=== PATIENT | female | born 1960 | race Caucasian/White ===

== ENCOUNTER 2016-10-28 18:15 | Inpatient (IN) | payer MEDICAID ==
[~2016-10-28] VITALS: Ht 162.6 cm; Wt 69.4 kg
[2016-10-28 19:59] LABS: PLATELET COUNT 153 x10^3mcL (130-400); RED CELL DISTRIBUTION WIDTH 12.7 % (11.5-14.5)
[2016-10-28 20:01] LABS: UA SPECIFIC GRAVITY 1.015 (1.005-1.035); microscopic required? YES; urine erythrocyte 1+ (NEGATIVE)
[2016-10-28 20:02] LABS: CALCIUM 8.5 mg/dL (8.5-10.1); CARBON DIOXIDE 20.3 mmol/L (21-32); CHLORIDE SERUM 104 mmol/L (98-107); GFR1 > 60 mL/min; GLUCOSE SERUM 163 mg/dL (74-106); POTASSIUM SERUM 3.3 mmol/L (3.5-5.1); SODIUM SERUM 138 mmol/L (136-145)
[2016-10-28 20:05] LABS: BASOPHIL % 0 % (0-2)
[2016-10-28 20:13] LABS: ALKALINE PHOSPHATASE 225 U/L (46-116); ALT/SGPT 71 U/L (14-59); AST/SGOT 23 U/L (15-37); BILIRUBIN TOTAL 1.41 mg/dL (0.20-1.00); TOTAL PROTEIN, SERUM 7.4 g/dL (6.4-8.2)
[2016-10-28 20:17] LABS: CK-MB < 0.5 ng/mL (0-3.6); CREATINE KINASE 74 U/L (26-192)
[2016-10-28 20:30] LABS: C REACTIVE PROTEIN 38.5 mg/dL (<=0.9)
[2016-10-28 20:32] LABS: T3 TOTAL 0.66 ng/mL
[2016-10-28 20:53] LABS: FREE T4 1.45 ng/dL (0.76-1.46); FREE THYROXINE INDEX 3.4 ug/dL (1.4-4.5); T4(THYROXINE) 9.7 ug/dL (4.7-13.3)
[2016-10-28] MEDS ORDERED: CLARITIN10 MG PO (21:33)
[2016-10-28] MEDS ORDERED: PHENAZOPYRIDIN200 M3 PO (21:33)
[2016-10-28] MEDS ORDERED: MAC100 PO (21:34)
[2016-10-28] MEDS ORDERED: IBUPROFEN400 MG PO (21:34)
[2016-10-28 22:05] LABS: CHOLESTEROL/HDL RATIO 3.7; MAGNESIUM 1.7 mg/dL (1.8-2.4); PHOSPHOROUS 2.4 mg/dL (2.5-4.9)
[2016-10-28 22:50] VITALS: BP 85/52
[2016-10-28 22:52] VITALS: BP 95/62
[2016-10-28 23:46] VITALS: BP 87/51
[2016-10-28 23:57] LABS: ERYTHROCYTE SED RATE 85 mm/hr (0-30)
[2016-10-29] VITALS (11 sets, daily range): BP systolic 83–112; BP diastolic 53–71
[2016-10-29 06:40] LABS: BASOPHIL % 0.3 % (0-2); RED CELL DISTRIBUTION WIDTH 12.9 % (11.5-14.5)
[2016-10-29 06:56] LABS: PLATELET COUNT 110 x10^3mcL (130-400)
[2016-10-29 07:03] LABS: CALCIUM 7.5 mg/dL (8.5-10.1); CARBON DIOXIDE 23.1 mmol/L (21-32); CHLORIDE SERUM 112 mmol/L (98-107); CREATININE SERUM 0.9 mg/dL (0.6-1.0); GFR1 > 60 mL/min; GLUCOSE SERUM 111 mg/dL (74-106); MAGNESIUM 2.6 mg/dL (1.8-2.4); PHOSPHOROUS 3.1 mg/dL (2.5-4.9); POTASSIUM SERUM 3.6 mmol/L (3.5-5.1); SODIUM SERUM 144 mmol/L (136-145)
[2016-10-30 06:24] VITALS: BP 116/64
[2016-10-30 06:36] LABS: BASOPHIL % 0.2 % (0-2); PLATELET COUNT 147 x10^3mcL (130-400); RED CELL DISTRIBUTION WIDTH 12.8 % (11.5-14.5)
[2016-10-30 06:42] LABS: CALCIUM 7.9 mg/dL (8.5-10.1); CARBON DIOXIDE 22.4 mmol/L (21-32); CHLORIDE SERUM 108 mmol/L (98-107); CREATININE SERUM 0.8 mg/dL (0.6-1.0); GFR1 > 60 mL/min; GLUCOSE SERUM 135 mg/dL (74-106); POTASSIUM SERUM 3.7 mmol/L (3.5-5.1); SODIUM SERUM 138 mmol/L (136-145)
[2016-10-30 09:11] VITALS: BP 98/65
[2016-10-30 13:54] VITALS: BP 123/80
[2016-10-30 17:24] VITALS: BP 134/77
[2016-10-30 22:08] VITALS: BP 129/77
[2016-10-31 06:36] VITALS: BP 135/69
[2016-10-31 06:43] LABS: CALCIUM 8.4 mg/dL (8.5-10.1); CARBON DIOXIDE 22.9 mmol/L (21-32); CHLORIDE SERUM 110 mmol/L (98-107); CREATININE SERUM 0.8 mg/dL (0.6-1.0); GFR1 > 60 mL/min; GLUCOSE SERUM 138 mg/dL (74-106); MAGNESIUM 1.7 mg/dL (1.8-2.4); PHOSPHOROUS 3.4 mg/dL (2.5-4.9); SODIUM SERUM 142 mmol/L (136-145)
[2016-10-31 06:46] LABS: BASOPHIL % 0.2 % (0-2); PLATELET COUNT 192 x10^3mcL (130-400); RED CELL DISTRIBUTION WIDTH 12.7 % (11.5-14.5)
[2016-10-31 09:28] VITALS: BP 109/68
[2016-10-31] MEDS ORDERED: CIPRO500 MG PO (12:13)
[2016-10-31] MEDS ORDERED: LAC PO (12:14)
== END 2016-10-31 15:57 | disposition home or self-care (01) | DRG 720 ==
LOC: ED 18:15 → DU 21:13
PROVIDERS: Specialist; ADMIT Family Medicine
DX: A41.9 Sepsis, unspecified organism (principal); N17.0 Acute kidney failure with tubular necrosis; N10 Acute pyelonephritis; E44.0 Moderate protein-calorie malnutrition; E87.6 Hypokalemia; E83.42 Hypomagnesemia; E86.0 Dehydration; R65.20 Severe sepsis without septic shock; E83.51 Hypocalcemia; D64.9 Anemia, unspecified; E83.39 Other disorders of phosphorus metabolism; M19.90 Unspecified osteoarthritis, unspecified site; Z79.82 Long term (current) use of aspirin; Z68.21 Body mass index [BMI] 21.0-21.9, adult
CPT/HCPCS: 36600; 83880; 84439; 94150; J0696; J1885; J2405; J3010; J3475; J3490; J7030; Q0092